=== PATIENT | male | born 1995 ===

== ENCOUNTER → 2016-12-18 | Outpatient (CLI) | payer BC ==
--- NOTE | 2016-12-18 09:51 | DIAGNOSTIC IMAGING REPORT ---
LEFT SHOULDER MIN 2 VIEWS CLINICAL HISTORY: Left shoulder pain. Sprain of left acromioclavicular joint. Evaluate for distal clavicular fracture. COMPARISON: None FINDINGS: Alignment of left glenohumeral joint is anatomic. No acute fracture is identified. There may be slight elevation of the left clavicle with respect to the acromion. IMPRESSION: 1. No acute fracture. 2. Possible slight elevation of the distal left clavicle with respect to the acromion which could reflect a mild AC joint injury. Electronically signed by: Noé Oconnell M.D. 12/18/2016 9:49 AM Dictated Date/Time: 12/18/2016 9:47 AM
== END | disposition home or self-care (01) ==
LOC: C.RDSM 09:31
PROVIDERS: ATTEND Orthopaedic Surgery
DX: S43.52XA Sprain of left acromioclavicular joint, initial encounter (principal); X58.XXXA Exposure to other specified factors, initial encounter; R93.7 Abnormal findings on diagnostic imaging of other parts of musculoskeletal system